=== PATIENT | male | born 1960 | race Hispanic/Latino ===

== ENCOUNTER 2020-01-16 00:08 | Inpatient (IN) | payer MEDICAID ==
[~2020-01-16] VITALS: Ht 170.2 cm; Wt 86.3 kg
[~2020-01-16 00:08] MED LIST: AEC81 PO; ATOR40TA71 PO; GEMF600T5 PO; GLIP10TA9 PO; HYDR25TA PO; LORA2TAB2 PO; NITR0.4T SL; OMEP40CA13 PO; SERT100T12 PO; TRAM50TA4 PO
[2020-01-16] MEDS ORDERED: DILTIAZEM HCL 5 MG/ML 10 ML VIAL IV ONE ×3 (00:48→01:45)
[2020-01-16] MEDS ORDERED: SODIUM CHLORIDE 0.9% 100 ML IV ONE (00:50)
[2020-01-16] MEDS ORDERED: ASPIRIN 325 MG TABLET ONE (01:01)
[2020-01-16] MEDS ORDERED: SODIUM CHLORIDE 0.9% 500ML 500 ML IV ONE (01:02)
[2020-01-16 01:19] LABS: BASOPHILS % (AUTO) 0.3 % (0.0-5.0); EOSINOPHILS % (AUTO) 1.4 % (0.0-8.0); HEMATOCRIT 41.7 % (42-54); LYMPHOCYTES % (AUTO) 34.6 % (21.0-51.0); MEAN CORPUSCULAR HEMOGLOBIN 27.9 pg (27.0-33.0); MEAN CORPUSCULAR HGB CONC 32.1 g/dL (32.0-36.0); MEAN CORPUSCULAR VOLUME 86.9 fL (79-99); MONOCYTES % (AUTO) 10.2 % (3.0-13.0); PLATELET COUNT (AUTO) 291 K/uL (130-400); RED CELL DISTRIBUTION WIDTH 14.6 % (11.0-15.5); WHITE BLOOD COUNT (AUTO) 8.6 K/uL (4.8-10.8)
[2020-01-16 01:21] LABS: AMPHET/METH SCREEN,URINE NEGATIVE (NEGATIVE); BARBITURATE SCREEN, URINE NEGATIVE (NEGATIVE); BENZODIAZEPINES SCREEN,URINE NEGATIVE (NEGATIVE); CANNABINOID SCREEN,URINE NEGATIVE (NEGATIVE); COCAINE SCREEN,URINE POSITIVE (NEGATIVE); OPIATE SCREEN,URINE NEGATIVE (NEGATIVE); PHENCYCLIDINE SCREEN,URINE NEGATIVE (NEGATIVE)
[2020-01-16 01:33] LABS: CREATININE 1.2 mg/dL (0.5-1.5); POTASSIUM 4.1 mmol/L (3.5-5.1)
[2020-01-16 01:36] LABS: INR 1.27 (0.85-1.15); PARTIAL THROMBOPLASTIN TIME 32.6 SEC (26.3-35.5); PROTHROMBIN TIME 13.6 SEC (9.6-11.6)
[2020-01-16 01:38] LABS: ALBUMIN 3.3 g/dL (3.5-5.0); BILIRUBIN,TOTAL 0.9 mg/dL (0.2-1.0); TOTAL PROTEIN, SERUM 7.4 g/dL (6.0-8.3)
[2020-01-16] MEDS ORDERED: FUROSEMIDE 10 MG/ML 4ML VIAL ONE (02:23)
[2020-01-16] MEDS ORDERED: LEVOFLOXACIN 750 MG/D5W 150 ML 150 ML ONE (02:23)
[2020-01-16] MEDS ORDERED: GUAIFENESIN-DM 200/20 MG 10 ML ONE (02:47)
[2020-01-16 10:40] VITALS: BP 110/84
[2020-01-16] MEDS ORDERED: GLUCAGON 1MG KIT 1 MG ML IM PRN (11:15)
[2020-01-16] MEDS ORDERED: HYDRALAZINE HCL 20 MG/ML VIAL IV PRN (11:15)
[2020-01-16] MEDS ORDERED: ACETAMINOPHEN 325 MG TAB PO PRN (11:15)
[2020-01-16] MEDS ORDERED: ONDANSETRON HCL 4 MG/2 ML VIAL IVP PRN (11:15)
[2020-01-16] MEDS ORDERED: LORAZEPAM 2 MG/ML 1 ML VIAL IVP PRN (11:15)
[2020-01-16] MEDS ORDERED: DEXTROSE 50%-WATER 50 ML DISP.SYRIN IV PRN (11:15)
[2020-01-16] MEDS: INSULIN HUMULIN R 100 UNIT/ML 3ML SQ SCH ×3 (11:30→20:18)
[2020-01-16] MEDS ORDERED: NITROGLYCERIN 0.4 MG SL TAB SL SCH (12:00)
[2020-01-16] MEDS ORDERED: FUROSEMIDE 20 MG TABLET PO SCH ×2 (12:00→17:00)
[2020-01-16] MEDS: LORAZEPAM 2 MG TABLET PO SCH ×2 (14:15→20:21)
[2020-01-16 15:30] VITALS: BP 110/77
[2020-01-16] MEDS: FUROSEMIDE 20 MG TABLET PO SCH (16:21)
[2020-01-16 20:03] VITALS: BP 127/75
[2020-01-16] MEDS: GEMFIBROZIL 600 MG TABLET PO SCH (20:21)
[2020-01-16] MEDS: ENOXAPARIN SODIUM 100 MG/1 ML SQ SCH (20:21)
[2020-01-16] MEDS: FAMOTIDINE 20MG TAB 20 MG TAB PO SCH (20:21)
[2020-01-16] MEDS: SERTRALINE HCL 50 MG TABLET PO SCH (20:21)
[2020-01-16] MEDS ORDERED: FAMOTIDINE/PF 20 MG/2 ML VIAL IV SCH (21:00)
[2020-01-16 23:42] VITALS: BP 111/90
[2020-01-17] VITALS (7 sets, daily range): BP systolic 104–136; BP diastolic 65–97
[2020-01-17] MEDS ORDERED: DILTIAZEM HCL 5 MG/ML 10 ML VIAL IV ONE ×2 (03:52)
[2020-01-17] MEDS ORDERED: SODIUM CHLORIDE 0.9% 100 ML IV ONE (04:53)
[2020-01-17 04:57] LABS: BASOPHILS % (AUTO) 0.3 % (0.0-5.0); EOSINOPHILS % (AUTO) 0.9 % (0.0-8.0); HEMATOCRIT 37.9 % (42-54); LYMPHOCYTES % (AUTO) 29.3 % (21.0-51.0); MEAN CORPUSCULAR HGB CONC 32.2 g/dL (32.0-36.0); MEAN CORPUSCULAR VOLUME 87.1 fL (79-99); MONOCYTES % (AUTO) 11.2 % (3.0-13.0); NEUTROPHILS % (AUTO) 57.7 % (40.0-77.0); PLATELET COUNT (AUTO) 289 K/uL (130-400); RED BLOOD CELL COUNT(AUTO) 4.35 MIL/uL (4.50-6.20); RED CELL DISTRIBUTION WIDTH 14.5 % (11.0-15.5); WHITE BLOOD COUNT (AUTO) 8.8 K/uL (4.8-10.8)
--- NOTE | 2020-01-17 05:22 | NUR ---
SHIFT SUMMARY PT A&OX3 ABLE TO MAKE NEEDS KNOWN. PT RECEIVED WITH CARDIZEM DRIP INFUSING AT 15ML/HR. HR HAS REMAINED 100-110S THROUGHOUT SHIFT, B/P STABLE. NO CHANGES FROM DOCUMENTED BASELINE SHIFT ASSESSMENT.
[2020-01-17 05:23] LABS: ALANINE AMINOTRANSFERASE 30 U/L (12-78); ALBUMIN 2.9 g/dL (3.5-5.0); ASPARTATE AMINOTRANSFERASE 15 U/L (10-37); BILIRUBIN,DIRECT 0.2 mg/dL (0.0-0.3); BILIRUBIN,TOTAL 0.7 mg/dL (0.2-1.0); CARBON DIOXIDE 24 mmol/L (21-32); CHLORIDE 104 mmol/L (101-111); CREATININE 1.1 mg/dL (0.5-1.5); GLOMERULAR FILTR. RATE CALC 72 mL/min (>60); GLUCOSE,RANDOM 84 mg/dL (70-105); PHOSPHORUS 2.8 mg/dL (2.5-4.9); POTASSIUM 3.3 mmol/L (3.5-5.1); SODIUM SERUM 138 mmol/L (136-145); TOTAL PROTEIN, SERUM 6.8 g/dL (6.0-8.3); UREA NITROGEN, BLOOD 19 mg/dL (7-18)
[2020-01-17] MEDS ORDERED: POTASSIUM CHLORIDE 20MEQ/100ML 100 ML IV PRN ×2 (05:30→12:30)
[2020-01-17] MEDS ORDERED: LIDOCAINE HCL-MPF 1% 2ML VIAL IV PRN ×2 (05:30→12:30)
[2020-01-17] MEDS ORDERED: POTASSIUM CHLORIDE 10% ELIXIR 20 MEQ/15 ML UDCUP PO PRN ×2 (05:30→12:30)
[2020-01-17 05:37] LABS: B-TYPE NATRIURETIC PEPTIDE 184 pg/mL (0-100)
[2020-01-17] MEDS: INSULIN HUMULIN R 100 UNIT/ML 3ML SQ SCH ×4 (06:02→20:19)
[2020-01-17] MEDS: POTASSIUM CHLORIDE 20 MEQ ERTAB PO PRN ×3 (06:21→12:38)
[2020-01-17 06:28] LABS: INR 1.14 (0.85-1.15); PARTIAL THROMBOPLASTIN TIME 29.9 SEC (26.3-35.5); PROTHROMBIN TIME 12.3 SEC (9.6-11.6)
[2020-01-17] MEDS ORDERED: FUROSEMIDE 10 MG/ML 2ML VIAL IVP SCH (09:00)
[2020-01-17] MEDS ORDERED: DEXAMETHASONE 4 MG TAB PO SCH (09:00)
[2020-01-17] MEDS: ATORVASTATIN CALCIUM 40 MG TABLET PO SCH (09:04)
[2020-01-17] MEDS: FUROSEMIDE 20 MG TABLET PO SCH ×2 (09:04→16:21)
[2020-01-17] MEDS: HYDROCHLOROTHIAZIDE 25 MG TABLET PO SCH (09:04)
[2020-01-17] MEDS: FAMOTIDINE 20MG TAB 20 MG TAB PO SCH ×2 (09:05→20:17)
[2020-01-17] MEDS: ASPIRIN 81 MG EC TAB PO SCH (09:05)
[2020-01-17] MEDS: GEMFIBROZIL 600 MG TABLET PO SCH ×2 (09:05→20:17)
[2020-01-17] MEDS: ENOXAPARIN SODIUM 100 MG/1 ML SQ SCH ×2 (09:06→20:21)
[2020-01-17] MEDS: LORAZEPAM 2 MG TABLET PO SCH ×3 (10:50→20:17)
[2020-01-17] MEDS ORDERED: POTASSIUM CHLORIDE 20 MEQ ERTAB PO PRN (12:30)
--- NOTE | 2020-01-17 12:58 | NUR ---
DC PLAN VISITED WITH PATIENT. PATIENT LIVES WITH PARENTS. PATIENT HAS NO DME WOULD LIKE OXYGEN AND A NEBULIZER. PROVIDER 8 HRS A DAY. TALKED TO PATIENT REGARDING BEING POSITIVE FOR COCAINE. SAID HE HAS NOT HAD USED IN 3 WEEKS. HE HAS BEEN GETTING CLEAN. DID NOT WANT INFO FOR DRUG CESSATION. LET NURSES KNOW ABOUT WANTING O2. LET PRIMARY KNOW THAT IT DOES NOT APPEAR TO HAVE A PULMONARY DIAGNOSIS. SINCE HE SAID HE WAS A SMOKER. MAYBE HE WOULD HAVE COPD. Addendum: 01/17/20 at 1316 by SHAHEED HAN RN CM Amended: Links added.
[2020-01-17] MEDS: DILTIAZEM 125MG+100 ML NS 125 ML IV SCH ×2 (13:11→20:49)
--- NOTE | 2020-01-17 15:08 | NUR ---
RD NOTIFICATION Pt admitted with AFIB, Cocaine abuse. Pt tolerating Heart Healthy, 75gm CC diet order with no report of GI distress. Good PO intake at 100%. K3.3, BUN 19, BG 115, Alb 2.9. Obesity Class I. Recommend Continue current diet order. Recommend add multivitamin QD RD to continue to monitor. Please notify as additional nutrition concerns arise. Thank you.
[2020-01-17] MEDS: SERTRALINE HCL 50 MG TABLET PO SCH (20:17)
[2020-01-17] MEDS: METOPROLOL TARTRATE 25 MG TAB PO SCH (20:17)
[2020-01-18 00:08] VITALS: BP 112/91
[2020-01-18 03:57] VITALS: BP 119/97
[2020-01-18] MEDS: DILTIAZEM 125MG+100 ML NS 125 ML IV SCH (04:00)
[2020-01-18] MEDS: INSULIN HUMULIN R 100 UNIT/ML 3ML SQ SCH ×4 (05:48→21:45)
--- NOTE | 2020-01-18 06:23 | NUR ---
SHIFT SUMMARY RECEIVED PT IN BED A&0X3 WITH CARDIZEM DRIP AT 15MG/HR. HR IN 130S GIVEN SCHEDULED METOPROLOL HR THROUGHOUT THE NIGHT 110S-120S THEREAFTER. BP REMAIN STABLE THROUGHOUT. NO CHANGES IN BASELINE SHIFT ASSESSMENT.
[2020-01-18] MEDS: LORAZEPAM 2 MG TABLET PO SCH ×3 (08:30→20:42)
[2020-01-18] MEDS: ATORVASTATIN CALCIUM 40 MG TABLET PO SCH (08:30)
[2020-01-18] MEDS: METOPROLOL TARTRATE 25 MG TAB PO SCH (08:30)
[2020-01-18] MEDS: FUROSEMIDE 20 MG TABLET PO SCH (08:30)
[2020-01-18] MEDS: FAMOTIDINE 20MG TAB 20 MG TAB PO SCH ×2 (08:31→20:43)
[2020-01-18] MEDS: ASPIRIN 81 MG EC TAB PO SCH (08:31)
[2020-01-18] MEDS: HYDROCHLOROTHIAZIDE 25 MG TABLET PO SCH (08:31)
[2020-01-18] MEDS: ENOXAPARIN SODIUM 100 MG/1 ML SQ SCH ×2 (08:33→20:44)
[2020-01-18] MEDS: GEMFIBROZIL 600 MG TABLET PO SCH ×2 (08:40→20:42)
[2020-01-18 08:42] VITALS: BP 120/85
[2020-01-18] MEDS ORDERED: METOPROLOL TARTRATE 25 MG TAB PO SCH (10:00)
[2020-01-18 12:37] VITALS: BP 110/84
[2020-01-18 15:40] VITALS: BP 128/63
[2020-01-18 20:00] VITALS: BP 121/71
[2020-01-18] MEDS: SERTRALINE HCL 50 MG TABLET PO SCH (20:43)
[2020-01-18] MEDS: METOPROLOL TARTRATE 50 MG TAB PO SCH (20:43)
[2020-01-18] MEDS ORDERED: IOHEXOL-350 75 ML VIAL IV ONE (23:11)
[2020-01-19] VITALS (7 sets, daily range): BP systolic 98–126; BP diastolic 58–87
--- NOTE | 2020-01-19 00:14 | NUR ---
CARDIZEM RECEIVED PT WITH CARDIZEM DRIP INFUSING AT 15MG/HR, HEART RATE 110S. RECEIVED SCHEDULED METOPROLOL. HR NOW IN 80S, CARDIZEM DRIP DECREASED TO 5MG/HR.
--- NOTE | 2020-01-19 02:00 | NUR ---
TRANSFER OF CARE PT TRANSFERRED TO ROOM 331 WITH ALL BELONGINGS CARE ENDORSED TO RN SUSANA HERNANDEZ. CARDIZEM DRIP AT 5MG/HR CURRENTLY INFUSING.
[2020-01-19 05:37] LABS: HEMATOCRIT 39.4 % (42-54); MEAN CORPUSCULAR HEMOGLOBIN 27.5 pg (27.0-33.0); MEAN CORPUSCULAR HGB CONC 32.2 g/dL (32.0-36.0); MEAN CORPUSCULAR VOLUME 85.5 fL (79-99); RED BLOOD CELL COUNT(AUTO) 4.61 MIL/uL (4.50-6.20); RED CELL DISTRIBUTION WIDTH 14.5 % (11.0-15.5); WHITE BLOOD COUNT (AUTO) 11.9 K/uL (4.8-10.8)
[2020-01-19] MEDS: INSULIN HUMULIN R 100 UNIT/ML 3ML SQ SCH ×4 (05:51→22:29)
[2020-01-19 06:02] LABS: CREATININE 1.2 mg/dL (0.5-1.5); MAGNESIUM 2.4 mg/dL (1.80-2.40); POTASSIUM 3.7 mmol/L (3.5-5.1)
[2020-01-19] MEDS: ATORVASTATIN CALCIUM 40 MG TABLET PO SCH (08:15)
[2020-01-19] MEDS: FAMOTIDINE 20MG TAB 20 MG TAB PO SCH ×2 (08:15→21:30)
[2020-01-19] MEDS: GEMFIBROZIL 600 MG TABLET PO SCH ×2 (08:15→21:30)
[2020-01-19] MEDS: LORAZEPAM 2 MG TABLET PO SCH ×3 (08:16→21:30)
[2020-01-19] MEDS: METOPROLOL TARTRATE 50 MG TAB PO SCH (08:16)
[2020-01-19] MEDS: RIVAROXABAN 20 MG TABLET PO SCH (08:16)
[2020-01-19] MEDS: HYDROCHLOROTHIAZIDE 25 MG TABLET PO SCH (08:16)
--- NOTE | 2020-01-19 10:56 | NUR ---
Moncho ARANGO, FACILITY DESIGNER, IN ROOM SPEAKING WITH PT. RE:PLAN OF CARE, INCLUDING MEDICATION ADJUSTMENTS, QUESTIONS ANSWERED AND PT. VERBALIZED UNDERSTANDING.
[2020-01-19] MEDS: DILTIAZEM 125MG+100 ML NS 125 ML IV SCH (13:07)
[2020-01-19] MEDS: DIGOXIN 250 MCG/ML 2ML AMP IV SCH ×2 (17:47→23:53)
[2020-01-19] MEDS: SERTRALINE HCL 50 MG TABLET PO SCH (21:30)
[2020-01-19] MEDS: METOPROLOL TARTRATE 25 MG TAB PO SCH (21:31)
[2020-01-20 03:44] VITALS: BP 123/79
[2020-01-20 05:37] LABS: HEMATOCRIT 42.9 % (42-54); MEAN CORPUSCULAR HGB CONC 32.6 g/dL (32.0-36.0); MEAN CORPUSCULAR VOLUME 85.8 fL (79-99); RED CELL DISTRIBUTION WIDTH 14.3 % (11.0-15.5); WHITE BLOOD COUNT (AUTO) 9.5 K/uL (4.8-10.8)
[2020-01-20 05:46] LABS: CREATININE 1.2 mg/dL (0.5-1.5)
[2020-01-20] MEDS: INSULIN HUMULIN R 100 UNIT/ML 3ML SQ SCH ×4 (06:47→21:00)
[2020-01-20 07:30] VITALS: BP 119/78
[2020-01-20] MEDS: GEMFIBROZIL 600 MG TABLET PO SCH ×2 (08:10→21:57)
[2020-01-20] MEDS: DIGOXIN 250 MCG TABLET PO SCH (08:10)
[2020-01-20] MEDS: METOPROLOL TARTRATE 25 MG TAB PO SCH ×2 (08:10→21:57)
[2020-01-20] MEDS: FAMOTIDINE 20MG TAB 20 MG TAB PO SCH ×2 (08:10→21:57)
[2020-01-20] MEDS: ATORVASTATIN CALCIUM 40 MG TABLET PO SCH (08:11)
[2020-01-20] MEDS: RIVAROXABAN 20 MG TABLET PO SCH (08:11)
[2020-01-20] MEDS: LORAZEPAM 2 MG TABLET PO SCH ×3 (09:00→21:00)
[2020-01-20] MEDS: HYDROCHLOROTHIAZIDE 25 MG TABLET PO SCH (09:00)
[2020-01-20 11:00] VITALS: BP 97/72
[2020-01-20 16:00] VITALS: BP 104/65
[2020-01-20 19:30] VITALS: BP 103/79
--- NOTE | 2020-01-20 21:20 | NUR ---
TRANSFER FROM [facility], REPORT RECEIVED FROM CAYDEN FOFANA. PT TRANSFERRED TO ROOM DAY PATIENT #16 VIA STRETCHER. PATIENT AAOx4. CARDIZEM DRIP RUNNING AT 10MG/HOUR. BED TO LOWEST LEVEL. CALL LIGHT WITHIN REACH. ORIENTED PATIENT TO ROOM AND SURROUNDINGS. VITALS BP 103/79, 98% ON ROOM AIR, HR 107, R15 TEMP 98.6. PT DENIES ANY CHEST PAIN OR DISCOMFORT. URINAL AT BEDSIDE, PT ON BEDREST.
[2020-01-20] MEDS: SERTRALINE HCL 50 MG TABLET PO SCH (21:57)
[2020-01-21] VITALS (7 sets, daily range): BP systolic 94–120; BP diastolic 66–85
[2020-01-21 03:33] LABS: BASOPHILS % (AUTO) 0.3 % (0.0-5.0); EOSINOPHILS % (AUTO) 0.7 % (0.0-8.0); HEMATOCRIT 47.3 % (42-54); LYMPHOCYTES % (AUTO) 32.4 % (21.0-51.0); MEAN CORPUSCULAR HEMOGLOBIN 27.5 pg (27.0-33.0); MEAN CORPUSCULAR HGB CONC 32.6 g/dL (32.0-36.0); MEAN CORPUSCULAR VOLUME 84.3 fL (79-99); MONOCYTES % (AUTO) 13.8 % (3.0-13.0); NEUTROPHILS % (AUTO) 52.3 % (40.0-77.0); PLATELET COUNT (AUTO) 383 K/uL (130-400); RED BLOOD CELL COUNT(AUTO) 5.61 MIL/uL (4.50-6.20); RED CELL DISTRIBUTION WIDTH 13.9 % (11.0-15.5); WHITE BLOOD COUNT (AUTO) 10.2 K/uL (4.8-10.8)
[2020-01-21 03:42] LABS: POTASSIUM 4.1 mmol/L (3.5-5.1)
[2020-01-21] MEDS: INSULIN HUMULIN R 100 UNIT/ML 3ML SQ SCH ×4 (06:32→20:15)
[2020-01-21] MEDS ORDERED: DIGOXIN 250 MCG/ML 2ML AMP IV SCH (08:15)
[2020-01-21] MEDS: LORAZEPAM 2 MG TABLET PO SCH ×3 (09:00→21:00)
[2020-01-21] MEDS: FAMOTIDINE 20MG TAB 20 MG TAB PO SCH ×2 (09:19→21:01)
[2020-01-21] MEDS: ATORVASTATIN CALCIUM 40 MG TABLET PO SCH (09:19)
[2020-01-21] MEDS: METOPROLOL TARTRATE 25 MG TAB PO SCH ×2 (09:19→21:01)
[2020-01-21] MEDS: RIVAROXABAN 20 MG TABLET PO SCH (09:20)
[2020-01-21] MEDS: GEMFIBROZIL 600 MG TABLET PO SCH ×2 (09:20→21:01)
[2020-01-21] MEDS: HYDROCHLOROTHIAZIDE 25 MG TABLET PO SCH (09:20)
[2020-01-21] MEDS: DIGOXIN 250 MCG TABLET PO SCH (09:21)
[2020-01-21] MEDS ORDERED: LORAZEPAM 1 MG TABLET ONE (20:48)
--- NOTE | 2020-01-21 21:00 | NUR ---
PT ON CARDIZEM DRIP AT 5MG/HR SINCE BEGINNING OF SHIFT WITH HR 110'S-120'S. LOPRESSOR 75MG PO GIVEN AT THIS TIME. PATIENT DENIES CHEST PRESSURE/DISCOMFORT. WILL CONTINUE TO MONITOR.
[2020-01-21] MEDS: SERTRALINE HCL 50 MG TABLET PO SCH (21:01)
[2020-01-22] MEDS: DILTIAZEM 125MG+100 ML NS 125 ML IV SCH (00:19)
--- NOTE | 2020-01-22 00:25 | NUR ---
PATIENT RESTING IN BED WITHOUT ACUTE DISTRESS NOTED, HR 80'S-90'S B/P STABLE. CARDIZEM DRIP DECREASED TO 2.5MG, WILL CONTINUE TO MONITOR.
[2020-01-22 04:08] VITALS: BP 93/64
[2020-01-22] MEDS: INSULIN HUMULIN R 100 UNIT/ML 3ML SQ SCH ×4 (06:00→19:45)
--- NOTE | 2020-01-22 06:35 | NUR ---
PATIENT WHILE ON CARDIZEM 5MG/HR, HR UPPER 90'S-110. HOWEVER, PATIENT SAT UP ON CHAIR TO SPONGE BATH AND HR INCREASED TO 120'S-130'S AND SUSTAINING. PATIENT DENIES CHEST PAIN/PRESSURE/DISCOMFORT. CARDIZEM DRIP INCREASED BACK TO 5MG/HR. WILL CONTINUE TO MONITOR.
[2020-01-22 07:52] VITALS: BP 90/63
[2020-01-22] MEDS: HYDROCHLOROTHIAZIDE 25 MG TABLET PO SCH (08:41)
[2020-01-22] MEDS: FAMOTIDINE 20MG TAB 20 MG TAB PO SCH ×2 (08:41→20:34)
[2020-01-22] MEDS: RIVAROXABAN 20 MG TABLET PO SCH (08:42)
[2020-01-22] MEDS: ATORVASTATIN CALCIUM 40 MG TABLET PO SCH (08:42)
[2020-01-22] MEDS: GEMFIBROZIL 600 MG TABLET PO SCH ×2 (08:42→20:34)
[2020-01-22] MEDS: METOPROLOL TARTRATE 25 MG TAB PO SCH ×2 (08:42→22:30)
[2020-01-22] MEDS: DIGOXIN 250 MCG TABLET PO SCH (08:43)
[2020-01-22] MEDS: LORAZEPAM 2 MG TABLET PO SCH ×4 (08:44→22:32)
[2020-01-22 11:00] VITALS: BP 105/78
--- NOTE | 2020-01-22 13:45 | NUR ---
PATIENT'S HEART RATE WILL ACCELERATE UP TO THE 130'S AND 140'S WITH ANY ACTIVITY. WHEN HE GETS UP TO THE BATHROOM PATIENTS HEART RATE WILL GO UP QUICKLY. CONTINUES ON CARDIZEM @ 5ML/HR FOR NOW. HEART RATE WILL COME DOWN WHEN AT REST AND ON MEDICATION. Addendum: 01/22/20 at 1347 by IRINEO MARQUIS RN RN Amended: Links added.
[2020-01-22 16:00] VITALS: BP 109/72
--- NOTE | 2020-01-22 19:50 | NUR ---
DR. GASTELUM HERE TO DO ROUNDS, PATIENT IN AFIB 120'S-130'S, ASYMPTOMATIC. NEW ORDERS GIVEN FOR DIGOXIN 250MCG IV X1 AND AM LABS. WILL CONTINUE TO MONITOR.
[2020-01-22 20:35] VITALS: BP 100/62
[2020-01-22] MEDS: SERTRALINE HCL 50 MG TABLET PO SCH (20:35)
[2020-01-22] MEDS ORDERED: DIGOXIN 250 MCG/ML 2ML AMP IV SCH (21:00)
[2020-01-22] MEDS ORDERED: SPIRONOLACTONE 25 MG TAB PO SCH (21:15)
[2020-01-23 00:28] VITALS: BP 105/53
[2020-01-23 03:49] VITALS: BP 123/72
[2020-01-23 04:10] LABS: CREATININE 1.2 mg/dL (0.5-1.5); DIGOXIN 1.52 ng/mL (0.50-2.00); MAGNESIUM 2.4 mg/dL (1.80-2.40); POTASSIUM 3.9 mmol/L (3.5-5.1)
[2020-01-23] MEDS: INSULIN HUMULIN R 100 UNIT/ML 3ML SQ SCH ×4 (06:21→21:29)
--- NOTE | 2020-01-23 06:30 | NUR ---
PATIENT IN AFIB 90'S AND LOWER 100'S WITH MOVEMENT. WILL CONTINUE TO MONITOR.
[2020-01-23 07:22] VITALS: BP 97/66
[2020-01-23] MEDS: DILTIAZEM 125MG+100 ML NS 125 ML IV SCH (08:18)
[2020-01-23] MEDS: FAMOTIDINE 20MG TAB 20 MG TAB PO SCH ×2 (08:43→21:20)
[2020-01-23] MEDS: METOPROLOL TARTRATE 25 MG TAB PO SCH ×2 (08:43→21:21)
[2020-01-23] MEDS: ATORVASTATIN CALCIUM 40 MG TABLET PO SCH (08:44)
[2020-01-23] MEDS: RIVAROXABAN 20 MG TABLET PO SCH (08:44)
[2020-01-23] MEDS: LORAZEPAM 2 MG TABLET PO SCH ×3 (08:44→23:06)
[2020-01-23] MEDS: GEMFIBROZIL 600 MG TABLET PO SCH ×2 (08:44→21:20)
[2020-01-23] MEDS: DIGOXIN 250 MCG TABLET PO SCH (08:45)
[2020-01-23 10:44] VITALS: BP 128/73
[2020-01-23 16:00] VITALS: BP 138/78
[2020-01-23 20:00] VITALS: BP 109/62
[2020-01-23] MEDS: SERTRALINE HCL 50 MG TABLET PO SCH (21:21)
--- NOTE | 2020-01-23 23:09 | NUR ---
GIVEN ATIVAN AND ZOLOFT. PT AFIB 120S. NO CHEST PAIN STATED. MINIMAL SOB WHEN AMBULATING.
[2020-01-24] VITALS (8 sets, daily range): BP systolic 96–123; BP diastolic 58–79
[2020-01-24] MEDS: INSULIN HUMULIN R 100 UNIT/ML 3ML SQ SCH ×4 (05:48→21:00)
[2020-01-24 05:55] LABS: HEMATOCRIT 49.1 % (42-54); MEAN CORPUSCULAR HEMOGLOBIN 27.8 pg (27.0-33.0); MEAN CORPUSCULAR VOLUME 84.2 fL (79-99); RED BLOOD CELL COUNT(AUTO) 5.83 MIL/uL (4.50-6.20); RED CELL DISTRIBUTION WIDTH 13.6 % (11.0-15.5); WHITE BLOOD COUNT (AUTO) 9.9 K/uL (4.8-10.8)
[2020-01-24 06:28] LABS: CREATININE 1.1 mg/dL (0.5-1.5); DIGOXIN 1.12 ng/mL (0.50-2.00); MAGNESIUM 2.3 mg/dL (1.80-2.40); POTASSIUM 3.8 mmol/L (3.5-5.1)
[2020-01-24] MEDS: GEMFIBROZIL 600 MG TABLET PO SCH ×2 (08:52→21:33)
[2020-01-24] MEDS: DIGOXIN 250 MCG TABLET PO SCH (08:53)
[2020-01-24] MEDS ORDERED: PERFLUTREN PROTEIN-A MICROSPHR 0.22 MG/ML VIAL IV ONE (09:00)
[2020-01-24] MEDS: LORAZEPAM 2 MG TABLET PO SCH ×3 (09:00→21:33)
[2020-01-24] MEDS: METOPROLOL TARTRATE 25 MG TAB PO SCH ×2 (09:00→21:33)
[2020-01-24] MEDS: FAMOTIDINE 20MG TAB 20 MG TAB PO SCH ×2 (09:01→21:33)
[2020-01-24] MEDS: ATORVASTATIN CALCIUM 40 MG TABLET PO SCH (09:01)
[2020-01-24] MEDS: DILTIAZEM 125MG+100 ML NS 125 ML IV SCH (12:12)
[2020-01-24] MEDS ORDERED: DIGOXIN 125 MCG TABLET PO SCH (15:20)
[2020-01-24] MEDS: SERTRALINE HCL 50 MG TABLET PO SCH (21:33)
[2020-01-25 03:52] LABS: BASOPHILS % (AUTO) 0.4 % (0.0-5.0); EOSINOPHILS % (AUTO) 0.7 % (0.0-8.0); HEMATOCRIT 46.9 % (42-54); LYMPHOCYTES % (AUTO) 35.4 % (21.0-51.0); MEAN CORPUSCULAR HEMOGLOBIN 27.4 pg (27.0-33.0); MEAN CORPUSCULAR HGB CONC 32.6 g/dL (32.0-36.0); MEAN CORPUSCULAR VOLUME 83.9 fL (79-99); MONOCYTES % (AUTO) 14.8 % (3.0-13.0); PLATELET COUNT (AUTO) 387 K/uL (130-400); RED BLOOD CELL COUNT(AUTO) 5.59 MIL/uL (4.50-6.20); RED CELL DISTRIBUTION WIDTH 13.7 % (11.0-15.5); WHITE BLOOD COUNT (AUTO) 9.7 K/uL (4.8-10.8)
[2020-01-25 04:00] VITALS: BP 110/70
[2020-01-25 04:01] LABS: CREATININE 1.1 mg/dL (0.5-1.5); MAGNESIUM 2.2 mg/dL (1.80-2.40); POTASSIUM 3.9 mmol/L (3.5-5.1)
[2020-01-25] MEDS: INSULIN HUMULIN R 100 UNIT/ML 3ML SQ SCH ×4 (06:04→23:10)
[2020-01-25 07:00] VITALS: BP 112/70
[2020-01-25] MEDS: GEMFIBROZIL 600 MG TABLET PO SCH ×2 (08:22→22:19)
[2020-01-25] MEDS: FAMOTIDINE 20MG TAB 20 MG TAB PO SCH ×2 (08:22→22:19)
[2020-01-25] MEDS: ATORVASTATIN CALCIUM 40 MG TABLET PO SCH (08:23)
[2020-01-25] MEDS: DIGOXIN 125 MCG TABLET PO SCH (08:24)
[2020-01-25] MEDS: METOPROLOL TARTRATE 25 MG TAB PO SCH (08:24)
[2020-01-25] MEDS: LORAZEPAM 2 MG TABLET PO SCH ×2 (09:00→21:00)
[2020-01-25] MEDS ORDERED: METOPROLOL TARTRATE 50 MG TAB PO SCH (09:15)
[2020-01-25 11:00] VITALS: BP 101/74
[2020-01-25 15:00] VITALS: BP 109/70
[2020-01-25 19:30] VITALS: BP 124/74
[2020-01-25] MEDS: METOPROLOL TARTRATE 50 MG TAB PO SCH (22:18)
[2020-01-25] MEDS: SERTRALINE HCL 50 MG TABLET PO SCH (22:19)
[2020-01-25] MEDS ORDERED: LORAZEPAM 1 MG TABLET ONE (22:59)
[2020-01-26] VITALS: BP 118/75
[2020-01-26] MEDS ORDERED: LORAZEPAM 1 MG TABLET ONE (00:20)
[2020-01-26 04:00] VITALS: BP 115/68
[2020-01-26 06:09] LABS: BASOPHILS % (AUTO) 0.4 % (0.0-5.0); HEMATOCRIT 47.9 % (42-54); LYMPHOCYTES % (AUTO) 37.2 % (21.0-51.0); MEAN CORPUSCULAR HEMOGLOBIN 27.8 pg (27.0-33.0); MEAN CORPUSCULAR HGB CONC 32.8 g/dL (32.0-36.0); MEAN CORPUSCULAR VOLUME 84.9 fL (79-99); MONOCYTES % (AUTO) 13.1 % (3.0-13.0); NEUTROPHILS % (AUTO) 47.9 % (40.0-77.0); PLATELET COUNT (AUTO) 375 K/uL (130-400); RED BLOOD CELL COUNT(AUTO) 5.64 MIL/uL (4.50-6.20); RED CELL DISTRIBUTION WIDTH 14.1 % (11.0-15.5); WHITE BLOOD COUNT (AUTO) 9.6 K/uL (4.8-10.8)
[2020-01-26] MEDS: INSULIN HUMULIN R 100 UNIT/ML 3ML SQ SCH ×4 (06:12→21:00)
[2020-01-26 06:37] LABS: ALBUMIN 3.2 g/dL (3.5-5.0); BILIRUBIN,TOTAL 0.7 mg/dL (0.2-1.0); CREATININE 0.9 mg/dL (0.5-1.5); MAGNESIUM 2.3 mg/dL (1.80-2.40); PHOSPHORUS 3.1 mg/dL (2.5-4.9); TOTAL PROTEIN, SERUM 7.2 g/dL (6.0-8.3)
[2020-01-26 08:05] VITALS: BP 91/53
[2020-01-26] MEDS: ATORVASTATIN CALCIUM 40 MG TABLET PO SCH (09:08)
[2020-01-26] MEDS: RIVAROXABAN 20 MG TABLET PO SCH (09:08)
[2020-01-26] MEDS: METOPROLOL TARTRATE 50 MG TAB PO SCH ×2 (09:09→23:05)
[2020-01-26] MEDS: GEMFIBROZIL 600 MG TABLET PO SCH ×2 (09:09→21:45)
[2020-01-26] MEDS: FAMOTIDINE 20MG TAB 20 MG TAB PO SCH ×2 (09:09→21:45)
[2020-01-26] MEDS: DIGOXIN 125 MCG TABLET PO SCH (09:12)
[2020-01-26 11:45] VITALS: BP 95/71
--- NOTE | 2020-01-26 11:47 | NUR ---
CM Note: [employer] pending approval and delivery CM spoke to pt discussed Dr Schilling's recs for lifevest, pt agreeable, telephone consent obtained GRACIELA for [employer], witnessed by Pietro SANTOS. Faxed order, clinicals, EKG to [employer], confirmation received. Pt pending approval and delivery. Primary nurse aware. CM to cont to follow up.
--- NOTE | 2020-01-26 11:51 | NUR ---
CM Note: [employer] pending approval and delivery CM called Cathy Bergerirez w/[employer], left voicemail. Pending rep to call CM back. Pt pending approval and delivery. Primary nurse aware. CM to cont to follow up.
[2020-01-26 15:59] VITALS: BP 102/48
[2020-01-26 20:00] VITALS: BP 111/71
--- NOTE | 2020-01-26 20:00 | NUR ---
Spoke to Jerry Ramirez who is dictaphone mechanic for [facility] salo informed him that the patient has already received life vest. Informed him also that there is no discharge order from [facility] and that I also do not see any med rec on the chart. He said that to just discharge patient tomorrow in the morning. Patient was informed and was okay with it. Will monitor patient closely.
[2020-01-26] MEDS: SERTRALINE HCL 50 MG TABLET PO SCH (21:45)
[2020-01-26] MEDS: LORAZEPAM 2 MG TABLET PO SCH (21:46)
[2020-01-27] VITALS: BP 93/48
[2020-01-27 04:00] VITALS: BP 120/61
[2020-01-27] MEDS: INSULIN HUMULIN R 100 UNIT/ML 3ML SQ SCH ×3 (06:28→16:30)
[2020-01-27 07:36] VITALS: BP 104/68
[2020-01-27] MEDS: RIVAROXABAN 20 MG TABLET PO SCH ×2 (09:00→12:15)
[2020-01-27] MEDS: FAMOTIDINE 20MG TAB 20 MG TAB PO SCH (09:57)
[2020-01-27] MEDS: GEMFIBROZIL 600 MG TABLET PO SCH (09:58)
[2020-01-27] MEDS: DIGOXIN 125 MCG TABLET PO SCH (09:59)
[2020-01-27] MEDS: ATORVASTATIN CALCIUM 40 MG TABLET PO SCH (09:59)
[2020-01-27] MEDS ORDERED: DIAZEPAM 5 MG TABLET PO PRN (10:15)
[2020-01-27] MEDS ORDERED: METOPROLOL TARTRATE 50 MG TAB PO SCH ×2 (10:15→21:00)
--- NOTE | 2020-01-27 11:38 | NUR ---
CM note: [employer] approved and on pt CM verified pt's [employer] approved and currently on pt now. Pt safe to DC once MD clear. Primary nurse aware. CM to cont to follow up.
[2020-01-27 11:57] VITALS: BP 114/59
[2020-01-27] MEDS ORDERED: METO50 PO (14:37)
[2020-01-27 15:46] VITALS: BP 87/65
[2020-01-27] MEDS ORDERED: RIVA20TA PO (16:02)
[2020-01-27] MEDS ORDERED: DIGO125T71 PO (16:02)
[2020-01-27] MEDS ORDERED: ARTIFICAL TEARS SOL 15 ML OU SCH (16:15)
--- NOTE | 2020-01-27 16:30 | NUR ---
24 HOUR HOLTER PT MADE AWARE NEEDING TO GO TO [facility] ON FRIDAY FOR 24 HOUR HOLTER, ACKNOWLEDGED INFORMATION.
--- NOTE | 2020-01-27 18:00 | NUR ---
DC PT AWAKE, ALERT, AND ORIENTED. DC HOME INSTRUCTIONS GIVEN TO PT, ACKNOWLEDGED ALL INFORMATION, ALL QUESTIONS ANSWERED. PT EDUCATED ON LIFE VEST AND MADE AWARE NEEDING TO CHANGE BATTERY INSTRUCTED, ACKNOWLEDGED INFORMATION. MADE AWARE OF RX ELECTRONICALLY SENT TO PHARMACY, STATES WILL PICK MEDICATIONS UP BEFORE GOING HOME. EDUCATED ON CESSATION OF ILLEGAL DRUG USE OR STIMULANTS; PATIENT ACKNOWLEDGED INFORMATION. MADE AWARE TO RETURN TO ER IF NECESSARY
== END 2020-01-27 18:03 | disposition home or self-care (01) | DRG 194 ==
LOC: EDH 00:08 → EDHIP 00:09 → 2AH 10:25 → 3AH 01-19 02:24 → DAHIP 01-20 19:04 → 4CH 01-23 11:44
PROVIDERS: ADMIT Internal Medicine Critical Care Medicine; ATTEND Internal Medicine Critical Care Medicine
PROC: 5A09357 Assistance with Respiratory Ventilation, Less than 24 Consecutive Hours, Continuous Positive Airway Pressure (ICD-10-PCS; principal; 2020-01-20)
DX: I11.0 Hypertensive heart disease with heart failure (principal); I25.10 Atherosclerotic heart disease of native coronary artery without angina pectoris; I50.43 Acute on chronic combined systolic (congestive) and diastolic (congestive) heart failure; I48.20 Chronic atrial fibrillation, unspecified; E11.9 Type 2 diabetes mellitus without complications; Z95.1 Presence of aortocoronary bypass graft; F14.129 Cocaine abuse with intoxication, unspecified; E87.6 Hypokalemia; E66.01 Morbid (severe) obesity due to excess calories; Z20.828 Contact with and (suspected) exposure to other viral communicable diseases; E78.5 Hyperlipidemia, unspecified; G47.33 Obstructive sleep apnea (adult) (pediatric); I25.5 Ischemic cardiomyopathy; I48.21 Permanent atrial fibrillation; Z79.01 Long term (current) use of anticoagulants; Z79.82 Long term (current) use of aspirin; Z79.84 Long term (current) use of oral hypoglycemic drugs; Z79.899 Other long term (current) drug therapy; Z87.891 Personal history of nicotine dependence; Z91.19 Patient's noncompliance with other medical treatment and regimen; Z68.29 Body mass index [BMI] 29.0-29.9, adult
CPT/HCPCS: 36415; 71045; 71275; 80048; 80053; 80076; 80162; 80305; 82550; 82728; 82948; 83735; 83880; 84100; 84145; 84484; 85025; 85027; 85378; 85610; 85730; 87426; 93005; 93306; 93356; 99291; G0378; J1160; J1650; J1815; J1940; J1956; J3490; J7040; J8540; Q9967; U0003